=== PATIENT | female | born 2000 | race Caucasian/White ===

== ENCOUNTER → 2024-01-28 08:15 | Outpatient (REF) | payer OTHER, SELFPAY | LOC: DHCBC MAIN 08:15 | PROVIDERS: ATTENDING PHYSICIAN Internal Medicine Cardiovascular Disease; FAMILY PHYSICIAN Nurse Practitioner Family | DX: R07.9 Chest pain, unspecified (principal); I47.9 Paroxysmal tachycardia, unspecified | CPT/HCPCS: 93306 ==

== ENCOUNTER → 2024-02-03 14:31 | Outpatient (REF) | payer OTHER, SELFPAY | LOC: RCS 14:31 | PROVIDERS: ATTENDING PHYSICIAN Internal Medicine Cardiovascular Disease; FAMILY PHYSICIAN Nurse Practitioner Family | DX: R07.9 Chest pain, unspecified (principal) | CPT/HCPCS: 93017 ==

== ENCOUNTER → 2025-09-28 15:51 | Outpatient (REF) | payer OTHER, SELFPAY | LOC: RAD 15:51 | PROVIDERS: ATTENDING PHYSICIAN Nurse Practitioner Family | DX: M54.50 Low back pain, unspecified (principal) | CPT/HCPCS: 72110; 72220 ==